=== PATIENT | female | born 1965 | race Caucasian/White ===

== ENCOUNTER 2017-01-01 20:22 | Emergency (ER) | payer OTHER ==
[~2017-01-01] VITALS: Ht 162.6 cm; Wt 79.2 kg
[~2017-01-01 20:22] MED LIST: ACTOS15 MG PO; ADULT LOW DOSE81 M1 PO; ALBUTEROL SULF8.5 GM IH; AMITRIPTYLINE H25 MG PO; AZITHROMYCIN500 M1 PO; BENZONATATE100 MG PO; BUPROPION XL150 MG PO; CARVEDILOL3.125 MG PO; CARVEDILOL6.25 MG PO; CEFTIN500 MG PO; CEFUROXIME500 MG; CITALOPRAM HBR20 M1 PO; CITALOPRAM HBR20 MG; COUMADIN4 MG PO; CRESTOR20 MG; CRESTOR20 MG PO; Celexa PO; Elavil PO; FLUOXETINE HCL20 M1 PO; FUROSEMIDE20 MG PO; FUROSEMIDE40 MG PO; HUMALOG; HUMALOG MI100 UNIT/1 SQ; HUMALOG100 UNITS/ SC; HYCODAN SYRUP480 ML PO; INSULIN; INSULIN PUMP SCCONT; K-DUR20 MEQ PO; LASIX40 MG; LASIX40 MG PO; LEVEMIR FL100 UNITS/; LEVEMIR FL100 UNITS/ SC; LEVEMIR FL100 UNITS/ SQ; LISINOPRIL10 MG PO; LISINOPRIL2.5 MG PO; LOPRESSOR50 MG PO; LYRICA75 MG; LYRICA75 MG PO; Lopressor PO; MEDROL DOSEPAK4 MG PO; METFORMIN HCL750 MG PO; NEBULIZER; NOVOLOG100 UNIT/1 SQ; PLAVIX75 MG PO; PREDNISONE50 MG PO; PROAIR HFA8.5 GM; PROAIR HFA8.5 GM IH; PROVENTIL,2.5 MG/3 M IH; Proventil,Ventolin H IH; SPIRIVA1 INHALATI IH; TOPROL XL50 MG PO; TRAMADOL HCL50 MG PO; Toprol XL PO; ULTRAM50 MG PO; Vibramycin, Doryx PO; XANAX0.25 MG PO; ZAROXOLYN,DIULO5 MG PO; ZAROXOLYN5 MG; ZESTRIL,PRINIV2.5 MG PO; ZESTRIL2.5 MG; ZITHROMAX250 MG PO; Zestril,Prinivil PO; celeXA PO; predniSONE PO
[2017-01-01 21:10] LABS: HEMATOCRIT 41.2 % (36.0-46.0); MCH 29.1 PG (29.0-34.0); MCHC 32.3 G/DL (30.0-36.0); MCV 90.2 FL (83-99); MEAN PLAT.VOLUME 12.3 uM^3 (9.5-12.4); PLATELET COUNT 150 K/uL (156-360); RBC DIS.WIDTH-CV 15.2 % (11.8-14.6); RBC DIS.WIDTH-SD 49.9 % (39-53); RED BLOOD COUNT 4.57 M/uL (3.80-5.20); WHITE BLOOD COUNT 6.8 K/uL (4.1-10.2)
[2017-01-01 21:17] LABS: CHLORIDE 105 mEq/L (99-109); POTASSIUM 3.4 mEq/L (3.7-5.4); SODIUM 144 mEq/L (136-147)
[2017-01-01 21:19] LABS: GLUCOSE 146 mg/dL (70-99)
[2017-01-01 21:20] LABS: ANION GAP 12 MEQ/L (2-14)
[2017-01-01 21:23] LABS: GFR ESTIMATE (CALCULATED) 50 mL/min/; UREA NITROGEN (BUN) 10 mg/dL (9-23)
[2017-01-01 22:44] LABS: TROP-I INTERPRETATION NEGATIVE; TROPONIN-I 0.01 ng/mL (0.0-0.30)
[2017-01-02 01:01] VITALS: BP 121/68
== END 2017-01-02 01:02 | disposition home or self-care (01) ==
LOC: EME 20:22
PROVIDERS: Physician Assistant
DX: I50.9 Heart failure, unspecified (principal); R60.0 Localized edema; E11.9 Type 2 diabetes mellitus without complications; J44.9 Chronic obstructive pulmonary disease, unspecified; I25.2 Old myocardial infarction; Z95.1 Presence of aortocoronary bypass graft; Z96.41 Presence of insulin pump (external) (internal); F17.200 Nicotine dependence, unspecified, uncomplicated
CPT/HCPCS: 71020; 80048; 84484; 85027; 93005; 99281; 99284; J3010

== ENCOUNTER 2017-10-29 12:38 | Emergency (ER) | payer OTHER ==
[~2017-10-29] VITALS: Ht 157.5 cm; Wt 83.1 kg
[2017-10-29 13:16] LABS: BASOPHIL (%) 0.5 % (0-1); EOSINOPHIL (%) 0.8 % (0-5); EOSINOPHIL COUNT 0.1 K/uL (0-0.3); HEMATOCRIT 40.7 % (36.0-46.0); HEMOGLOBIN 13.7 G/DL (11.9-15.5); IMMATURE GRANULOCYTE (%) 0.3 % (0.0-0.7); LYMPHOCYTE COUNT 1.8 K/uL (1.0-2.8); MCH 30.6 PG (29.0-34.0); MCHC 33.7 G/DL (30.0-36.0); MCV 90.8 FL (83-99); MONOCYTE (%) 6.8 % (3-12); MONOCYTE COUNT 0.5 K/uL (0-0.8); NEUTROPHIL (%) 69.6 % (45-76); NEUTROPHIL COUNT 5.6 K/uL (1.8-6.4); PLATELET COUNT 164 K/uL (156-360); RBC DIS.WIDTH-CV 13.2 % (11.8-14.6); RBC DIS.WIDTH-SD 43.9 % (39-53); RED BLOOD COUNT 4.48 M/uL (3.80-5.20)
[2017-10-29 13:25] LABS: ALBUMIN 3.3 g/dL (3.2-4.8); CHLORIDE 111 mEq/L (99-109); POTASSIUM 4.7 mEq/L (3.7-5.4); SODIUM 141 mEq/L (136-147)
[2017-10-29 13:26] LABS: MAGNESIUM 1.8 mg/dL (1.3-2.7)
[2017-10-29 13:28] LABS: GLUCOSE 110 mg/dL (70-99); TOTAL PROTEIN 6.5 g/dL (6.4-8.3)
[2017-10-29 13:30] LABS: TOTAL BILIRUBIN 0.6 mg/dL (0.0-1.0)
[2017-10-29 13:31] LABS: ALKALINE PHOSPHATASE 91 IU/L (3-129)
[2017-10-29 13:32] LABS: CREATININE 1.1 mg/dL (0.6-1.3); GFR ESTIMATE (CALCULATED) 55 mL/min/
[2017-10-29 13:33] LABS: AST (GOT) 14 IU/L (2-34); UREA NITROGEN (BUN) 15 mg/dL (9-23)
[2017-10-29 13:34] LABS: ALT (GPT) 11 IU/L (3-49)
[2017-10-29 13:41] LABS: TROP-I INTERPRETATION NEGATIVE; TROPONIN-I 0.02 ng/mL (0.0-0.30)
[2017-10-29 14:29] LABS: APPEARANCE CLEAR ((CLEAR)); BILIRUBIN NEGATIVE; BLOOD MODERATE; COLOR YELLOW ((YELLOW)); GLUCOSE (STRIP) NEGATIVE; KETONES NEGATIVE; LEUKOCYTES NEGATIVE; NITRITE NEGATIVE; PROTEIN (STRIP) 30; SPECIFIC GRAVITY 1.006 (1.000-1.030); UROBILINOGEN 0.2 MG/DL (0.2-1.0)
[2017-10-29 14:31] LABS: BACTERIA NONE SEEN /HPF; EPITHELIAL CELLS RARE /HPF; MUCUS NONE SEEN /LPF; RED BLOOD CELLS 0-5 /HPF (0-5); UCUL ADDED? NO; WHITE BLOOD CELLS 0-5 /HPF (0-5)
[2017-10-29 15:55] VITALS: BP 123/55
== END 2017-10-29 15:56 | disposition home or self-care (01) ==
LOC: EME 12:38
PROVIDERS: Emergency Medicine
DX: J44.1 Chronic obstructive pulmonary disease with (acute) exacerbation (principal); I50.9 Heart failure, unspecified; R19.7 Diarrhea, unspecified; E11.9 Type 2 diabetes mellitus without complications; I25.2 Old myocardial infarction; F41.9 Anxiety disorder, unspecified; F32.9 Major depressive disorder, single episode, unspecified; F17.200 Nicotine dependence, unspecified, uncomplicated; Z96.41 Presence of insulin pump (external) (internal); Z95.1 Presence of aortocoronary bypass graft; Z91.040 Latex allergy status; Z88.1 Allergy status to other antibiotic agents; Z88.5 Allergy status to narcotic agent; Z88.0 Allergy status to penicillin; Z88.6 Allergy status to analgesic agent
CPT/HCPCS: 71045; 80053; 81003; 83735; 83880; 84484; 85025; 93005; 94640; 99281; 99285

== ENCOUNTER 2017-11-08 13:07 | Observation (INO) | payer OTHER ==
[~2017-11-08] VITALS: Ht 165.1 cm; Wt 79.8 kg
[~2017-11-08 13:07] MED LIST changes: -FUROSEMIDE40 MG PO; +LASIX80 MG PO; +LYRICA150 MG PO
[2017-11-08 14:25] LABS: HEMATOCRIT 42.3 % (36.0-46.0); HEMOGLOBIN 14.1 G/DL (11.9-15.5); MCH 30.5 PG (29.0-34.0); MCHC 33.3 G/DL (30.0-36.0); MCV 91.6 FL (83-99); PLATELET COUNT 190 K/uL (156-360); RBC DIS.WIDTH-CV 13.2 % (11.8-14.6); RBC DIS.WIDTH-SD 43.9 % (39-53); RED BLOOD COUNT 4.62 M/uL (3.80-5.20); WHITE BLOOD COUNT 7.5 K/uL (4.1-10.2)
[2017-11-08 14:37] LABS: CHLORIDE 109 mEq/L (99-109); SODIUM 140 mEq/L (136-147)
[2017-11-08 14:39] LABS: GLUCOSE 117 mg/dL (70-99)
[2017-11-08 14:43] LABS: CREATININE 1.1 mg/dL (0.6-1.3); GFR ESTIMATE (CALCULATED) 55 mL/min/
[2017-11-08 14:44] LABS: UREA NITROGEN (BUN) 12 mg/dL (9-23)
[2017-11-08 14:47] LABS: TROP-I INTERPRETATION NEGATIVE; TROPONIN-I 0.02 ng/mL (0.0-0.30)
[2017-11-08] MEDS ORDERED: ADVAIR 250/501 DISK IH (18:01)
[2017-11-08] MEDS ORDERED: K-DUR10 MEQ PO (18:03)
[2017-11-09 00:23] VITALS: BP 134/61
[2017-11-09 02:53] LABS: APPEARANCE CLEAR ((CLEAR)); BILIRUBIN NEGATIVE; BLOOD MODERATE; COLOR STRAW ((YELLOW)); GLUCOSE (STRIP) NEGATIVE; KETONES NEGATIVE; LEUKOCYTES NEGATIVE; NITRITE NEGATIVE; PROTEIN (STRIP) NEGATIVE; UROBILINOGEN 0.2 MG/DL (0.2-1.0)
[2017-11-09 03:31] LABS: BACTERIA NONE SEEN /HPF; EPITHELIAL CELLS RARE /HPF; HYALINE CASTS 0-5 /LPF; MUCUS TRACE /LPF; RED BLOOD CELLS 0-5 /HPF (0-5); UCUL ADDED? NO; WHITE BLOOD CELLS 0-5 /HPF (0-5)
[2017-11-09 03:58] VITALS: BP 119/58
[2017-11-09 07:22] VITALS: BP 100/55
[2017-11-09 09:08] LABS: TROP-I INTERPRETATION NEGATIVE; TROPONIN-I 0.02 ng/mL (0.0-0.30)
[2017-11-09 12:07] VITALS: BP 143/65
[2017-11-09 14:06] LABS: TROP-I INTERPRETATION NEGATIVE; TROPONIN-I 0.02 ng/mL (0.0-0.30)
[2017-11-09 16:00] VITALS: BP 141/62
== END 2017-11-09 17:10 | disposition home or self-care (01) ==
LOC: EME 13:07 → EDOF 22:34 → 5SOUTH 22:34 → ENRESERV 22:36 → 5SOUTH 11-09 00:12
PROVIDERS: Hospitalist
DX: I11.0 Hypertensive heart disease with heart failure (principal); I50.9 Heart failure, unspecified; I25.5 Ischemic cardiomyopathy; I25.2 Old myocardial infarction; Z95.810 Presence of automatic (implantable) cardiac defibrillator; E11.51 Type 2 diabetes mellitus with diabetic peripheral angiopathy without gangrene; J44.9 Chronic obstructive pulmonary disease, unspecified; K21.9 Gastro-esophageal reflux disease without esophagitis; E78.5 Hyperlipidemia, unspecified; I25.10 Atherosclerotic heart disease of native coronary artery without angina pectoris; Z95.5 Presence of coronary angioplasty implant and graft; I27.20 Pulmonary hypertension, unspecified; Z95.1 Presence of aortocoronary bypass graft; F17.210 Nicotine dependence, cigarettes, uncomplicated; Z79.4 Long term (current) use of insulin; Z96.41 Presence of insulin pump (external) (internal); Z82.49 Family history of ischemic heart disease and other diseases of the circulatory system; Z88.0 Allergy status to penicillin; Z88.5 Allergy status to narcotic agent; Z88.1 Allergy status to other antibiotic agents; Z88.6 Allergy status to analgesic agent
CPT/HCPCS: 71046; 71275; 80048; 81003; 82948; 83880; 84484; 85027; 85379; 93005; 94640; 99202; 99281; 99285; G0378; J1650; J1940

== ENCOUNTER → 2018-01-21 | Outpatient (CLI) | payer MEDICARE, OTHER ==
[~2018-01-21] MED LIST changes: +ADVAIR 250/501 DISK IH; +K-DUR10 MEQ PO
== END | disposition home or self-care (01) ==
LOC: CDC 10:56
DX: Z01.810 Encounter for preprocedural cardiovascular examination (principal); I70.25 Atherosclerosis of native arteries of other extremities with ulceration; I45.10 Unspecified right bundle-branch block; R94.31 Abnormal electrocardiogram [ECG] [EKG]
CPT/HCPCS: 93000

== ENCOUNTER 2018-04-03 11:49 | Inpatient (IN) | payer OTHER ==
[~2018-04-03] VITALS: Ht 165.1 cm; Wt 78.5 kg
[~2018-04-03 11:49] MED LIST changes: -BUPROPION XL150 MG PO; +BUPROPION XL300 MG PO
[2018-04-03 13:14] LABS: BASOPHIL (%) 0.6 % (0-1); BASOPHIL COUNT 0.1 K/uL (0-0.1); EOSINOPHIL (%) 2.5 % (0-5); EOSINOPHIL COUNT 0.2 K/uL (0-0.3); HEMATOCRIT 38.9 % (36.0-46.0); HEMOGLOBIN 13.2 G/DL (11.9-15.5); IMMATURE GRANULOCYTE (%) 0.4 % (0.0-0.7); LYMPHOCYTE (%) 18.9 % (15-42); LYMPHOCYTE COUNT 1.5 K/uL (1.0-2.8); MCH 29.8 PG (29.0-34.0); MCHC 33.9 G/DL (30.0-36.0); MCV 87.8 FL (83-99); MONOCYTE (%) 8.1 % (3-12); MONOCYTE COUNT 0.6 K/uL (0-0.8); NEUTROPHIL (%) 69.5 % (45-76); NEUTROPHIL COUNT 5.5 K/uL (1.8-6.4); PLATELET COUNT 164 K/uL (156-360); RBC DIS.WIDTH-CV 14.5 % (11.8-14.6); RBC DIS.WIDTH-SD 46.9 % (39-53); RED BLOOD COUNT 4.43 M/uL (3.80-5.20); WHITE BLOOD COUNT 7.9 K/uL (4.1-10.2)
[2018-04-03 13:22] LABS: ALBUMIN 3.6 g/dL (3.2-4.8)
[2018-04-03 13:23] LABS: CHLORIDE 106 mEq/L (99-109); POTASSIUM 3.7 mEq/L (3.7-5.4); SODIUM 138 mEq/L (136-147)
[2018-04-03 13:25] LABS: GLUCOSE 156 mg/dL (70-99); TOTAL PROTEIN 7.1 g/dL (6.4-8.3)
[2018-04-03 13:27] LABS: TOTAL BILIRUBIN 0.7 mg/dL (0.0-1.0)
[2018-04-03 13:28] LABS: ALKALINE PHOSPHATASE 93 IU/L (3-129)
[2018-04-03 13:29] LABS: CREATININE 1.1 mg/dL (0.6-1.3); GFR ESTIMATE (CALCULATED) 55 mL/min/
[2018-04-03 13:30] LABS: AST (GOT) 15 IU/L (2-34); UREA NITROGEN (BUN) 10 mg/dL (9-23)
[2018-04-03 13:31] LABS: ALT (GPT) 8 IU/L (3-49)
[2018-04-03] MEDS ORDERED: METOLAZONE2.5 MG PO (15:18)
[2018-04-03] MEDS ORDERED: PENTOXIFYLLINE400 MG PO (15:18)
[2018-04-03] MEDS ORDERED: INCRUSE ELLI62.5 MCG IH (15:18)
[2018-04-03] MEDS ORDERED: CILOSTAZOL50 MG PO (15:19)
[2018-04-03] MEDS ORDERED: ATORVASTATIN CA40 MG PO (15:19)
[2018-04-03] MEDS ORDERED: NORCO 5/3251 TABLET PO (15:20)
[2018-04-03 17:47] VITALS: BP 125/58
[2018-04-03 19:25] VITALS: BP 121/56
[2018-04-03 23:18] VITALS: BP 129/61
[2018-04-04 04:05] VITALS: BP 98/50
[2018-04-04 07:05] LABS: CHLORIDE 107 MEQ/L (99-109); GFR ESTIMATE (CALCULATED) > 59 mL/min/; GLUCOSE 127 mg/dL (70-99); POTASSIUM 3.8 MEQ/L (3.7-5.4); SODIUM 139 MEQ/L (136-147); UREA NITROGEN (BUN) 17 mg/dL (9-23)
[2018-04-04 08:13] VITALS: BP 113/56
[2018-04-04 11:46] VITALS: BP 124/61
[2018-04-04] MEDS ORDERED: NORTRIPTYLINE H25 MG PO (16:02)
[2018-04-04 16:13] VITALS: BP 118/68
== END 2018-04-04 20:30 | disposition home or self-care (01) | DRG 300 ==
LOC: EME 11:49 → 3EAST 15:35 → EDOF 15:35 → ENRESERV 15:40 → 3EAST 17:03
PROVIDERS: Emergency Medicine; Internal Medicine
DX: E10.52 Type 1 diabetes mellitus with diabetic peripheral angiopathy with gangrene (principal); Z96.41 Presence of insulin pump (external) (internal); I25.10 Atherosclerotic heart disease of native coronary artery without angina pectoris; I11.0 Hypertensive heart disease with heart failure; I50.9 Heart failure, unspecified; F17.210 Nicotine dependence, cigarettes, uncomplicated; J44.9 Chronic obstructive pulmonary disease, unspecified; E78.5 Hyperlipidemia, unspecified; Z83.3 Family history of diabetes mellitus; I25.2 Old myocardial infarction; Z95.810 Presence of automatic (implantable) cardiac defibrillator; Z95.1 Presence of aortocoronary bypass graft; Z90.710 Acquired absence of both cervix and uterus; Z79.4 Long term (current) use of insulin; Z88.0 Allergy status to penicillin
CPT/HCPCS: 73660; 80048; 80053; 82948; 83605; 85025; 87040; 93005; 94640; 94799; 99281; 99285; J0696; J1100; J1200; J2270; J3370; S0020